=== PATIENT | male | born 1985 | race African-American/Black ===

== ENCOUNTER 2016-08-30 20:08 | Emergency (ER) | payer SELFPAY ==
[~2016-08-30] VITALS: Ht 172.7 cm; Wt 87.0 kg
[2016-08-30 20:09] VITALS: BP 121/74; PULSE 76; RESP 16; TEMP 98.2; O2SAT 98
[2016-08-30] MEDS ORDERED: AMOXICILLIN/CLAVULANATE K 875 MG TAB PO ONE (21:00)
[2016-08-30] MEDS ORDERED: AUGM875T PO (21:07)
--- NOTE | 2016-08-30 21:07 | PD ---
HPI Chief Complaint: Oral / Dental Pain or Problem Time Seen by Provider: 20:50 Travel History International Travel<30 days: No Contact w/Intl Traveler<30days: No Traveled to known affect area: No History of Present Illness HPI The patient is 31 year old male who presents to the [facility] emergency department with a history of a right upper jaw toothache that began on Wednesday. The patient reports that the tooth is broken and broke, he believes in 2014. He reports that he last saw a dentist in November 2015 for a tooth cleaning. He reports that he is currently in a work release program. He reports that he last had dental extractions of 6 teeth, while he was incarcerated. The patient reports he has had a problem with this same tooth 2-1/2 months ago. He reports that the swelling and pain went away on its own. He reports that yesterday he began to have swelling to the right side of his cheek. He reports that the swelling became worse today along with the pain, therefore he came to the emergency department for evaluation and treatment. The patient reports that he has been taking ibuprofen for pain. The patient denies any recent fevers, cough , congestion, neck pain, chest pain, shortness of breath, abdominal pain, vomiting, diarrhea, urinary symptoms, or neurologic symptoms. [facility] Past Medical History Narrative Medical The patient's past medical history is reportedly none. Medical History: Denies Significant Hx Tetanus Vaccination: Unknown Influenza Vaccination: No Past Surgical History Narrative Surgical The patient's past surgical history is significant for dental extractions. Surgical History: No Previous Surgery Social History Alcohol Use: Yes Tobacco Use: Yes Substance Use: No Allergies-Medications (Allergen,Severity, Reaction): Coded Allergies: No Known Allergies (Unverified , 08/30/16) Narrative Medication [id number] ibuprofen. Review of Systems Except as stated in HPI: all other systems reviewed are Neg General / Constitutional: No: Fever Eyes: No: Visual changes HENT: Positive: Dental Difficulties, No: Headaches Cardiovascular: No: Chest Pain or Discomfort Respiratory: No: Shortness of Breath Gastrointestinal: No: Abdominal Pain Genitourinary: No: Dysuria Musculoskeletal: No: Pain Skin: No Rash Neurologic: No: Weakness Psychiatric: No: Depression Endocrine: No: Polydipsia Hematologic/Lymphatic: No: Easy Bruising Physical Exam Narrative General: The patient is well-developed well-nourished male in no acute distress. Head and Neck exam: Head is normocephalic atraumatic. Eyes: Pupils are equal round and reactive to light. Nose: Midline septum with pink mucous membranes Mouth: Dentition is noted to have several areas of decay and previously extracted teeth. The area of interest is the right maxilla, the patient reports having tenderness on palpation over a broken tooth. There is gingival erythema and slight edema, however no britt abscess formation. No drainage. The patient has a small amount of swelling noted along the right cheek, right upper jawline. Moist mucus membranes. Posterior oropharynx is not erythematous. No tonsillar hypertrophy. Uvula midline. Airway patent. Neck: No palpable lymphadenopathy. No nuchal rigidity. No thyromegaly. Cardiovascular: Regular rate and rhythm without murmurs, gallops, or rubs. Lungs: Clear to auscultation bilaterally. No wheezes, rhonchi, or rales. Abdomen: Soft, without tenderness to palpation in all 4 quadrants of the abdomen. No guarding, rebound, or rigidity. Normal bowel sounds are audible. Extremities: No clubbing, cyanosis, or edema. 2+ pulses in all 4 extremities. Neurologic Exam: Grossly nonfocal. Skin Exam: No rash noted. Intact skin that is warm and dry. Data Data Last Documented VS Vital Signs Date Time Temp Pulse Resp B/P Pulse Ox O2 Delivery O2 Flow Rate FiO2 08/30/16 20:09 98.2 76 16 121/74 98 Orders Amoxicil-Clavulanate (Augmentin) (08/30/16 21:00) MDM Medical Decision Making Medical Screen Exam Complete: Yes Emergency Medical Condition: Yes Medical Record Reviewed: Yes Differential Diagnosis Dental fracture, versus abscess, versus dental decay, versus gingivitis, versus maxillary sinusitis Narrative Course During the course of the patients emergency department visit, the patients history, examination, and differential diagnosis were reviewed with the patient. The patient on examination is noted to have dental decay with gingival inflammation. There is no britt abscess formation. The patient was given Augmentin 875 mg by mouth 1. The patient was instructed regarding the importance of following up with a dentist as soon as possible. I recommended that he start looking for a dentist on Wednesday morning as his symptoms will likely recur without definitive treatment of the tooth. The patient is instructed to take ibuprofen alternating with Tylenol as needed for discomfort as written on the package. The patient is resting comfortably and feels better, is alert and in no distress. The patients examination findings were discussed with the patient. The repeat examination is unremarkable and benign. The history, exam, diagnostic testing, and current condition do not suggest any significant pathology to warrant further testing, continued ED treatment, admission, or surgical evaluation at this point. The vital signs have been stable. The patient does not have uncontrollable pain, intractable vomiting, or other significant symptoms. The patient's condition is stable and appropriate for discharge. The patient will pursue further outpatient evaluation with a primary care physician or other designated or consulting physician as indicated in the discharge instructions. The patient expressed understanding and was agreeable with this plan. Diagnosis Primary Impression: Pain due to dental caries Additional Impression: Infected dental caries Referrals: Dentist 1 day Patient Instructions: Dental Abscess (ED), Dental Caries (ED), General Instructions Med/Other Pt SpecificInfo: Prescription(s) given Scripts Amoxicillin-Clavulanate (Augmentin)875-125 mg Fju630 Mg PO BID #19 TAB Ref 0 not for use in CrCl <30 ml/min. Prov:Ana Mills MD 08/30/16 Disposition: 01 DISCHARGE HOME Condition: Stable Ana Mills MD Aug 30, 2016 21:07
== END 2016-08-30 21:57 | disposition home or self-care (01) ==
LOC: NEPE 20:08
DX: K02.9 Dental caries, unspecified (principal); K04.7 Periapical abscess without sinus; Z72.0 Tobacco use
CPT/HCPCS: 99282